=== PATIENT | female | born 1950 | race Caucasian/White ===

== ENCOUNTER → 2017-08-05 | Outpatient (CLI) | payer OTHER | LOC: BMCIMAGING 14:24 | PROVIDERS: ATTEND Internal Medicine | DX: Z12.31 Encounter for screening mammogram for malignant neoplasm of breast (principal) | CPT/HCPCS: G0202 ==

== ENCOUNTER 2017-12-03 20:56 | Emergency (ER) | payer OTHER ==
[2017-12-03 21:03] VITALS: BP 145/83; PULSE 100; RESP 18; TEMP 97.9; O2SAT 95
--- NOTE | 2017-12-03 22:12 | EDPHY ---
H & P Stated Complaint: L foot pain since 1814 HPI/ROS: Chief complaint: Left foot pain History of present illness: This is a 67-year-old female who presents to the emergency department for evaluation of left foot pain. She reports the onset of symptoms this evening. She was driving to [employer] when symptoms began. She denies specific precipitating factors including no report of trauma. Pain is along the upper inner aspect of the foot. Worse with palpation or movement. No report of other associated signs or symptoms including no abnormal coolness or paresthesias in the foot, no warmth or swelling in the foot. No other involvement of the leg or other parts of the body. - Personal History Current Tetanus/Diphtheria Vaccine: Yes - Medical/Surgical History Hx Asthma: No Hx Chronic Respiratory Disease: No Hx Diabetes: No Hx Cardiac Disease: No Hx Renal Disease: No Hx Cirrhosis: No Hx Alcoholism: No Hx HIV/AIDS: No Hx Splenectomy or Spleen Trauma: No Other PMH: depression, - Social History Smoking Status: Former smoker - Physical Exam Exam: General: Alert, nontoxic Skin: No rashes or lesions to the left foot Musculoskeletal: Mild tenderness over the a dorsomedial aspect of the left foot. No crepitus or bony deformity. The rest of the foot as well as the ankle is nontender. Discomfort extending the toes. She is flexing well. She is moving the ankle well in all gibson without difficulty. Vascular: DP and PT pulses 2+. Neurologic: Sensation intact throughout the foot. Constitutional: Initial Vital Signs Temperature (C) 36.6 C 12/03/17 20:59 Heart Rate 100 12/03/17 20:59 Respiratory Rate 18 12/03/17 20:59 Blood Pressure 145/83 H 12/03/17 20:59 O2 Sat (%) 95 12/03/17 20:59 O2 Delivery Mode Room Air Allergies/Adverse Reactions: formaldehyde Allergy (Verified 12/03/17 21:03) Sulfa (Sulfonamide Antibiotics) Allergy (Verified 12/03/17 21:03) Home Medications: Medication Instructions Recorded Prozac 40 mg 12/03/17 Medical Decision Making - Diagnostics Imaging: I viewed and interpreted images myself Procedures: Patient's foot placed in an Gabriel wrap and postop shoe. She is given crutches. ED Course/Re-evaluation: Patient seen under the supervision of my secondary supervising physician Dr. Jose L Easley. Patient presents to the emergency room for left foot pain. The foot is neurovascularly intact. X-rays negative. She is placed in an Gabriel wrap and postop shoe. Placed on crutches. She is referred to Orthopedics or Podiatry for recheck. Home care is discussed. Return precautions are given. Patient voiced understanding and agreement with plan. Differential Diagnosis: Included but not limited to contusion, sprain or strain, bony fracture, joint dislocation Departure - Departure Disposition: Home, Routine, Self-Care Clinical Impression: Left foot pain Condition: Good Instructions: Metatarsalgia (DC) Additional Instructions: Follow-up with orthopedics or podiatry for continued evaluation and care Use [id number] ibuprofen or Tylenol as directed as needed for pain for the next 2-3 days If symptoms worsen or new symptoms develop return to the emergency room for recheck Referrals: Joan Duvall MD [Primary Care Provider] - As per Instructions Kyler Hughes MD [Medical Doctor] - As per Instructions Milagros Leyva [Doctor of Podiatric Medicine] - As per Instructions
== END 2017-12-03 22:21 | disposition home or self-care (01) ==
DX: M79.672 Pain in left foot (principal); Z87.891 Personal history of nicotine dependence
CPT/HCPCS: 73630; 99283; L4386

== ENCOUNTER → 2018-12-15 | Outpatient (CLI) | payer OTHER | LOC: BMCIMAGING 12:34 | PROVIDERS: ATTEND Internal Medicine | DX: Z12.31 Encounter for screening mammogram for malignant neoplasm of breast (principal) ==